=== PATIENT | female | born 1975 | race Caucasian/White ===

== ENCOUNTER → 2024-03-21 18:51 | Outpatient (REF) | payer OTHER, SELFPAY | LOC: WDC 18:51 | PROVIDERS: ATTENDING PHYSICIAN Obstetrics & Gynecology; FAMILY PHYSICIAN Internal Medicine | DX: Z12.31 Encounter for screening mammogram for malignant neoplasm of breast (principal) | CPT/HCPCS: 77063; 77067 ==

== ENCOUNTER → 2024-08-24 10:21 | Outpatient (REF) | payer OTHER, SELFPAY | LOC: HWRAD 10:21 | PROVIDERS: ATTENDING PHYSICIAN Obstetrics & Gynecology; FAMILY PHYSICIAN Internal Medicine | DX: N92.1 Excessive and frequent menstruation with irregular cycle (principal) | CPT/HCPCS: 76830; 76856 ==

== ENCOUNTER 2024-09-11 06:14 | Day surgery (SDC) | payer OTHER, SELFPAY ==
[2024-09-11 07:14] LABS: Glucose - Point of Care 127 mg/dl (70-99)
== END 2024-09-11 08:32 | disposition home or self-care (01) ==
LOC: GI 06:14
PROVIDERS: ATTENDING PHYSICIAN Internal Medicine
DX: Z12.11 Encounter for screening for malignant neoplasm of colon (principal)
CPT/HCPCS: G0121; 82962

== ENCOUNTER 2024-09-18 01:02 | Emergency (ER) | payer OTHER, SELFPAY ==
[2024-09-18 01:26] VITALS: BP 141/115
--- NOTE | 2024-09-18 01:32 | ED.GENMED ---
History of Present Illness
General
Chief Complaint: Heart Rate Problem
Source: patient and spouse
Time Seen by Provider: 09/18/24 01:18
History of Present Illness
History of Present Illness:
49-year-old female presents emergency department complaints of not feeling good when she woke at 12:30 AM she checked her watch and was noted to be in A-fib. She is complaining of feeling dyspneic but denies chest pain or pressure, diaphoresis,
fever, chills, nausea, vomiting, or other complaints. Patient has had intermittent episodes of A-fib in the past, and this presentation is very similar including the dyspnea. She does incidentally note that she has had mild nasal congestion and an
intermittent cough for the last few days. No PE risk factors identified such as estrogen use, recent immobilization, recent trauma, recent surgery, etc.
Past History
Past History
ED Past Medical History: Arrthythmia (frequent PVCs), GERD, Hypercholesterolemia and IDDM
Social History
Tobacco: Non-smoker
Alcohol: None
Drug: None
Personal:
Living: with family
Phy Exam
Physical Exam
Physical Exam:
GENERAL: Alert , in no apparent distress
EYE: pupils equal and reactive
NECK: Supple, no significant adenopathy.
ENT: o/p clr, mmm.
CARDIAC: Irregularly irregular, tachycardic
LUNGS: Clear breath sounds bilaterally, no acute respiratory distress,
ABDOMEN: Soft, without focal tenderness, no r/g, no cvat
NEUROLOGICAL: Alert and oriented, no focal neuro deficits
SKIN: Warm and dry, skin intact.
MUSCULOSKELETAL: No edema, well perfused.
PSYCH: Normal and appropriate interaction.
Course
Orders/Labs/Results
Orders:
Orders
09/18/24 01:07
ECG [Electrocardiogram (*1)] Urgent
Reason for Study: Atrial Fibrillation
09/18/24 01:08
EKG- Treatment ONCE
09/18/24 01:32
Diltiazem 125 mg/125 ml Nss [Cardizem] 125 mg in 125 ml .ROUTE .STK-MED
Diltiazem 125 mg/125 ml Nss [Cardizem] 125 mg in 125 ml IV NOW
Initial dose in mg/hr, then titrate:: 5
Titrate to keep:: Heart rate 80-100 bpm
Titrate by mg/hr:: 5 mg/hr
Frequency of titrations (minutes):: 15
Maximum dose in mg/hr:: 15
Diltiazem HCl [Cardizem] 20 mg IV NOW STA
Diltiazem HCl [Cardizem] 25 mg .ROUTE .STK-MED ONE
09/18/24 01:42
Basic Metabolic Panel Urgent
Complete Blood Count/No Diff Urgent
TSH Urgent
09/18/24 02:01
EKG [Electrocardiogram (*1)] Urgent
Reason for Study: Other
Other Reason for Exam: rhythm change
EKG- Treatment ONCE
Abnormal Lab Results
09/18/24
01:42
RBC 5.46 H 10^6/uL
(4.20-5.40)
MCV 71.8 L fL
(81.0-99.0)
MCH 24.4 L pg
(27.0-31.0)
MPV 10.5 H fL
(7.4-10.4)
Carbon Dioxide 17 L mmol/L
(22-30)
Creatinine 0.5 L mg/dL
(0.6-1.0)
Glucose 234 H mg/dl
(70-99)
09/18/24 01:42
09/18/24 01:42
Vital Signs
Initial and Last Documented VS:
Initial Vital Signs
Temp Pulse BP
97.5 F 174 141/115
09/18/24 01:26 09/18/24 01:26 09/18/24 01:26
Last Documented Vital Signs
Temp Pulse Resp BP Pulse Ox
97.5 F 102 14 107/68 99
09/18/24 01:26 09/18/24 01:45 09/18/24 01:45 09/18/24 01:45 09/18/24 01:45
*Critical Care Note
Total Time (30-74mins, 75-104mins- exclusive of procedures): Not Applicable
Update Note
Update Note:
Patient presents to the Emergency Department with palpitations and dyspnea
Number and Complexity of Problems Addressed at the Encounter
� Chronic conditions affecting care:
� Acute Exacerbation and/or Progression of Chronic Illness:
� Differential Diagnosis includes: But not limited to a flutter, A-fib, SVT, anxiety, PE, etc. etc.
Amount and/or Complexity of Data to be Reviewed and Analyzed
� I performed an independent evaluation of and my interpretation is:
EKG: Read by me, A-fib with RVR, no acute ischemia, normal axis
CT:
Xrays:
Laboratory Studies:
Other:
� Review of other/old records reveals:
� Clinical information was obtained by an independent historian:
� Prescriptions/Medications Considered but not given:
� Further testing considered but not performed:
Risk of Complications and/or Morbidity or Mortality of Patient Management
� Social determinants of health affecting care:
� Discussion with other providers (PCP, Hospitalists, Consultants, etc):
� Escalation of care including admission/observation vs risk of discharge considered: 2:09 AM patient spontaneously converted to normal sinus rhythm. Discussed the patient importance of follow-up with her irrigation laborer this week
and reasons return to the ER. TSH pending, patient will follow-up on on portal.
ED Attending Note
-
Portions of this chart may have been created with voice recognition software.� Occasional wrong word or��sound alike� substitutions may have occurred due to the inherent limitations of voice recognition software.
Discharge Plan
Departure
Patient Disposition: Home (Routine Discharge)
Date of Disposition: 09/18/24
Time of Disposition: 02:09
Patient with high blood pressure during this ER visit?: Yes
Condition: Good
Discharge Problem:
Atrial fibrillation
Instructions: Atrial Fibrillation (DC), BLOOD PRESSURE
Prescriptions:
No Action
pantoprazole [Protonix] 20 mg tablet,delayed release (DR/EC)
20 mg PO BID Qty: 30 3RF
Activity Restrictions/Additional Instructions:
PLEASE CONTACT YOUR DRUG DEPARTMENT WORKER THIS WEEK FOR CLOSE FOLLOW-UP. IF YOU DEVELOP FEVER, CHILLS, PALPITATIONS, SHORTNESS OF BREATH, CHEST PAIN, OR OTHER WORRISOME SIGNS, PLEASE RETURN TO THE ER IMMEDIATELY!
Interventions
Interventions:
*Risk Screen - Suicide Last Done: 09/18/24 01:08
*Neglect/Abuse Screening Last Done: 09/18/24 01:08
ED- Fall Risk Assessment Last Done: 09/18/24 01:43
ED- Cardiac Assessment Last Done: 09/18/24 01:43
ED- Pulmonary Assessment Last Done: 09/18/24 01:43
Discharge Date and Time
Print Language: GIBRALTARIAN
[2024-09-18] MEDS: CARDIZEM 20 MG IV (01:33)
[2024-09-18 01:35] VITALS: BP 117/100
[2024-09-18] MEDS: CARDIZEM 125 IV (01:38)
[2024-09-18 01:43] VITALS: BMI 31.1
[2024-09-18 01:45] VITALS: BP 107/68
[2024-09-18 01:47] LABS: Hematocrit 39.2 % (37.0-47.0); Hemoglobin 13.3 g/dL (12.0-16.0); Mean Corp Hgb Conc. 33.9 g/dL (33.0-37.0); Mean Corpuscular Hgb 24.4 pg (27.0-31.0); Mean Corpuscular Volume 71.8 fL (81.0-99.0); Mean Platelet Volume 10.5 fL (7.4-10.4); Platelet Count 256 10^3/uL (130-400); Red Blood Cell Count 5.46 10^6/uL (4.20-5.40); Red Cell Dist. Width 13.3 % (11.5-14.5); White Blood Cell Count 6.4 10^3/uL (4.8-10.8)
[2024-09-18 01:59] LABS: Blood Urea Nitrogen 14 mg/dl (7-17); Calcium 10.2 mg/dl (8.4-10.2); Carbon Dioxide 17 mmol/L (22-30); Chloride 103 mmol/L (98-107); Estimated Creatinine Clearance > 125 ml/min; Glucose 234 mg/dl (70-99); Potassium 3.7 mmol/L (3.5-5.1); Sodium 138 mmol/L (135-145); eGFR > 60.00
[2024-09-18 02:00] VITALS: BP 115/74
[2024-09-18 02:29] LABS: TSH 7.82 uIU/ml (0.47-4.68)
== END 2024-09-18 02:19 | disposition home or self-care (01) ==
LOC: EMR 01:02
PROVIDERS: EMERGENCY PHYSICIAN Emergency Medicine; FAMILY PHYSICIAN Internal Medicine
DX: I48.91 Unspecified atrial fibrillation (principal); E11.9 Type 2 diabetes mellitus without complications; E78.00 Pure hypercholesterolemia, unspecified; K21.9 Gastro-esophageal reflux disease without esophagitis; Z79.4 Long term (current) use of insulin
CPT/HCPCS: 96374; 99284; 80048; 84443; 85027; 93005

== ENCOUNTER → 2024-10-06 10:40 | Outpatient (REF) | payer OTHER, SELFPAY | LOC: WDC 10:40 | PROVIDERS: ATTENDING PHYSICIAN Obstetrics & Gynecology; FAMILY PHYSICIAN Internal Medicine | DX: R92.2 Inconclusive mammogram (principal); Z80.3 Family history of malignant neoplasm of breast | CPT/HCPCS: 76641 ==

== ENCOUNTER → 2025-04-10 14:03 | Outpatient (REF) | payer OTHER, SELFPAY | LOC: WDC 14:03 | PROVIDERS: ATTENDING PHYSICIAN Obstetrics & Gynecology; FAMILY PHYSICIAN Internal Medicine | DX: R92.8 Other abnormal and inconclusive findings on diagnostic imaging of breast (principal) | CPT/HCPCS: 76642 ==

== ENCOUNTER → 2025-04-18 19:31 | Outpatient (REF) | payer OTHER, SELFPAY | LOC: WDC 19:31 | PROVIDERS: ATTENDING PHYSICIAN Obstetrics & Gynecology; FAMILY PHYSICIAN Internal Medicine | DX: Z12.31 Encounter for screening mammogram for malignant neoplasm of breast (principal) | CPT/HCPCS: 77063; 77067 ==

== ENCOUNTER 2025-05-08 06:24 | Day surgery (SDC) | payer OTHER, SELFPAY ==
[2025-04-24 11:38] LABS: Hematocrit 33.0 % (37.0-47.0); Hemoglobin 10.3 g/dL (12.0-16.0); Mean Corp Hgb Conc. 31.2 g/dL (33.0-37.0); Mean Corpuscular Volume 67.9 fL (81.0-99.0); Nucleated Red Blood Cells % 0 %; Platelet Count 189 10^3/uL (130-400); Red Cell Dist. Width 15.6 % (11.5-14.5)
[2025-04-24 12:05] LABS: Blood Urea Nitrogen 14 mg/dl (7-17); Calcium 9.2 mg/dl (8.4-10.2); Carbon Dioxide 23 mmol/L (22-30); Chloride 107 mmol/L (98-107); Glucose 165 mg/dl (70-99); Potassium 4.6 mmol/L (3.5-5.1); Sodium 136 mmol/L (135-145); eGFR > 60.00
[2025-04-24 12:21] LABS: Beta HCG Quantitative < 2.39 mIU/ml
[2025-04-24 14:15] VITALS: BMI 31.6
[2025-05-08] VITALS (9 sets, daily range): BP systolic 108–128; BP diastolic 59–75; BMI 31.6
[2025-05-08 10:06] LABS: Glucose - Point of Care 207 mg/dl (70-99)
[2025-05-08] MEDS: NEURONTIN 300 MG PO (10:07)
[2025-05-08] MEDS: NORMOSOL-R/PLASMALYTE-A 1000 IV (10:08)
[2025-05-08] MEDS: TYLENOL 1000 MG PO (10:08)
[2025-05-08] MEDS: HEPARIN 5000 UNITS SC (11:12)
--- NOTE | 2025-05-08 11:29 | W.SUR.PREOP ---
Pre-Operative Surgical Note
-
I have examined this patient prior to the performance of the scheduled procedure.
The patient's condition is unchanged from the time of the current History and
Physical and the patient is able to undergo the scheduled procedure.
--- NOTE | 2025-05-08 15:12 | W.IMMPOSTOP ---
Surgical Immed Post Op Note
-
Primary Surgeon: Oly Alonzo DO
Assisting Surgeon: GIOVANNI Peguero
Pre-op Diagnosis: Menorrhagia, complex right adenexal cystic mass; BAMBI
Post-op Diagnosis: same; right multicystic ovary and right hydrosalpinx
Procedure Performed: RA TLH RSO and left salpingectomy, lysis adhesions( Dr. Alonzo); suburethral sling (Dr. Hendrickson)
Anesthesia Type: general ET Dr. Kilpatrick
Specimen / Cultures: uterus, cervix, left tube, right tube and ovary
Estimated Blood Loss: 10ml
Complications: none
Operative Findings: Uerus apprix 10.5 cm, globular morphology, tubes consistent with prior tubal ligation. Atrophic appearing left ovary.
Right ovary has multiple cysts and is adherent to the adjacent right fallopian tube which has hydrosalpinx. Adhesions noted from vicinity of the bladder
and also from distal right fimbriated portion of fallopian tube to pelvic peritoneum anteriorly on right.
Counts correct times 2.
Stable to recovery.
[2025-05-08 15:16] LABS: Glucose - Point of Care 217 mg/dl (70-99)
== END 2025-05-08 18:05 | disposition home or self-care (01) ==
LOC: SDS 06:24
PROVIDERS: ATTENDING PHYSICIAN Obstetrics & Gynecology; FAMILY PHYSICIAN Internal Medicine; OTHER PHYSICIAN Obstetrics & Gynecology
DX: N92.0 Excessive and frequent menstruation with regular cycle (principal); N83.01 Follicular cyst of right ovary; N39.3 Stress incontinence (female) (male); N36.41 Hypermobility of urethra; N70.11 Chronic salpingitis; N84.0 Polyp of corpus uteri; D25.9 Leiomyoma of uterus, unspecified
CPT/HCPCS: 58571; 57288; 36415; 80048; 82962; 84702; 85025; 86850; 86900; 86901; 88307; C1771

== ENCOUNTER 2025-06-13 06:11 | Day surgery (SDC) | payer OTHER, SELFPAY ==
[2025-06-13 08:16] LABS: Glucose - Point of Care 147 mg/dl (70-99)
== END 2025-06-13 09:16 | disposition home or self-care (01) ==
LOC: GI 06:11
PROVIDERS: ATTENDING PHYSICIAN Internal Medicine
DX: D64.9 Anemia, unspecified (principal); K90.0 Celiac disease; K20.90 Esophagitis, unspecified without bleeding; K29.70 Gastritis, unspecified, without bleeding; K31.89 Other diseases of stomach and duodenum; K29.80 Duodenitis without bleeding
CPT/HCPCS: 43239; 82962; 88305; 88342